=== PATIENT | female | born 1980 ===

== ENCOUNTER 2017-07-07 09:44 | Day surgery (SDC) | payer MEDICAID ==
[2017-07-07] MEDS ORDERED: LIDOCAINE 1% 2 ML INJ ONE (10:03)
--- NOTE | 2017-07-07 10:35 | PDANEPAE ---
ANE History of Present Illness 37 yo female with chronic constipation/IBS. ANE Past Medical History - Cardiovascular History Hx Hypertension: No Hx Arrhythmias: No Hx Chest Pain: No Hx Coronary Artery / Peripheral Vascular Disease: No Hx CHF / Valvular Disease: No Hx Palpitations: No - Pulmonary History Hx COPD: No Hx Asthma/Reactive Airway Disease: Yes Hx Recent Upper Respiratory Infection: No Hx Oxygen in Use at Home: No Hx Sleep Apnea: No Sleep Apnea Screening Result - Last Documented: Negative Pulmonary History Comment: ASTHMA- INSTRUCTED PT BRING INHALER DOP, multi ED visits for RAD in past, no intubations. Most recent was 2 yrs ago. - Neurologic History Hx Cerebrovascular Accident: No Hx Seizures: No Hx Dementia: No - Endocrine History Hx Diabetes: No - Renal History Hx Renal Disorders: No - Liver History Hx Hepatic Disorders: No - Neurological & Psychiatric Hx Hx Neurological and Psychiatric Disorders: Yes Neurological / Psychiatric History Comment: TYPE 2 BIPOLAR - Cancer History Hx Cancer: No - Congenital Disorder History Hx Congenital Disorders: No - GI History Hx Gastrointestinal Disorders: Yes Gastrointestinal History Comment: IBS. CHRONIC CONSTIPATION - Other Health History Other Health History: WEARS GLASSES - Chronic Pain History Chronic Pain: No - Surgical History Prior Surgeries: COLONOSCOPY X1 ANE Review of Systems Review of Systems: - Exercise capacity METS (RN): 4 METS - Systems Constitutional: Reports: no symptoms Respiratory: Reports: wheezing (uses albuterol most days) ANE Patient History - Allergies Allergies/Adverse Reactions: No Known Allergies Allergy (Verified 07/02/17 11:09) - Home Medications Home Medications: LAMOTRIGINE 07/02/17 [Last Taken Unknown] Linzess 07/02/17 [Last Taken Unknown] Proair Hfa 07/02/17 [Last Taken Unknown] - NPO status NPO Status: no food or drink >8 hours - Anes Hx Anes Hx: no prior problems - Smoking Hx Smoking Status: Former smoker Marijuana use: No - Family Anes Hx Family Anes Hx: none Family Hx Anesthesia Complications: NONE ANE Labs/Vital Signs - Vital Signs Vital Signs: reviewed preoperatively; see RN documention for details Height: 157.48 cm Weight: 55.792 kg ANE Physical Exam - Airway Neck exam: FROM Mallampati Score: Class 2 Mouth exam: normal dental/mouth exam - Pulmonary Pulmonary: reduced air movement - Cardiovascular Cardiovascular: regular rate and rhythym - ASA Status ASA Status: II ANE Anesthesia Plan Anesthesia Plan: GA with mask Total IV Anesthesia: Yes
[2017-07-07 10:39] VITALS: PULSE 63
[2017-07-07] MEDS ORDERED: LIDOCAINE 1% 2 ML INJ ID PRN (10:41)
[2017-07-07] MEDS ORDERED: LR 1,000 ML IV ONE (10:41)
--- NOTE | 2017-07-07 10:46 | PDGENHP ---
History & Physical Chief Complaint: Hx of colon polyps Relevant Physical Exam: GEN: NAD. Cardiac: RRR. Lungs: CTA B. Abd: Soft, nt, nd
[2017-07-07] MEDS ORDERED: MIDAZOLAM 2 MG/2 ML VIAL IVP ONE (11:43)
[2017-07-07] MEDS ORDERED: PROPOFOL 200 MG/20 ML VIAL ONE ×2 (11:55)
--- NOTE | 2017-07-07 12:23 | GIREPORT ---
[facility] - Endoscopy Department Patient Name: Tiara Trinidad Procedure Date: 07/07/2017 12:05 PM Patient Type: Outpatient Attending / ER Physician: Ricki Duffy MD Procedure: Colonoscopy Indications: High risk colon cancer surveillance: Personal history of colonic polyps Providers: Ricki Duffy MD Medicines: Monitored Anesthesia Care Complications: No immediate complications. Description of Procedure: After obtaining informed consent, the scope was passed under direct vision. Throughout the proce dure, the patient's blood pressure, pulse, and oxygen saturations were monitored continuously. The Colonoscope with irrigation channel was introduced through the anus and advanced to the terminal ileum, with identification of the appendiceal orifice and IC valve. The colonoscopy was performe d without difficulty. The patient tolerated the procedure well. The quality of the bowel preparati on was good. Findings: The perianal and digital rectal examinations were normal. The terminal ileum appeared normal. The colon (entire examined portion) appeared normal. The retroflexed view of the distal rectum and anal verge was normal and showed no anal or rectal abnormalities. Estimated Blood Loss: Estimated blood loss: none. Post Op Diagnosis: - The examined portion of the ileum was normal. - The entire examined colon is normal. - The distal rectum and anal verge are normal on retroflexion view. - No specimens collected. Recommendation: - Discharge patient to home (with escort). - Resume previous diet. - Continue present medications. - Repeat colonoscopy in 5 years for surveillance (personal history of polyps). - Thank you for allowing me to participate in the care of your patient. Attending Participation: I personally performed the entire procedure. Ricki Duffy MD Ricki Duffy MD 07/07/2017 12:22:50 PM Number of Addenda: 0 Note Initiated On: 07/07/2017 12:05 PM Total Procedure Duration Time 0 hours 13 minutes 5 seconds [email or web address]
[2017-07-07] MEDS ORDERED: NALOXONE HCL 0.4 MG/ML INJ IVP PRN (12:33)
[2017-07-07] MEDS ORDERED: fentaNYL 100 MCG/2 ML INJ IVP PRN (12:33)
--- NOTE | 2017-07-07 12:34 | POSTANESTH ---
Post Anesthetic Evaluation Cardiovascular Status: Normal, Stable Respiratory Status: Normal, Stable Level of Consciousness/Mental Status: Can Participate in Eval Pain Control: Adequate, Prn Tx Ordered Nausea/Vomiting Control: Adequate, Prn Tx Ordered Complications Possibly Related to Anesthesia: None Noted
[2017-07-07 12:53] VITALS: O2SAT 100
[2017-07-07 13:46] VITALS: BP 99/58; RESP 18
[2017-07-07 13:48] VITALS: TEMP 97.7
== END 2017-07-07 13:42 | disposition home or self-care (01) ==
LOC: FSGY 09:44
PROVIDERS: ATTEND Internal Medicine Gastroenterology
PROC: 0DJD8ZZ Inspection of Lower Intestinal Tract, Via Natural or Artificial Opening Endoscopic (ICD-10-PCS; principal; 2017-07-07 11:00)
DX: Z12.11 Encounter for screening for malignant neoplasm of colon (principal); K59.00 Constipation, unspecified; Z86.010 Personal history of colon polyps
CPT/HCPCS: J2250; J2704